=== PATIENT | female | born 1960 | race Two or more races ===

== ENCOUNTER → 2024-12-04 | Outpatient (CLI) | payer MEDICARE, MEDICAID, SELFPAY ==
--- NOTE | 2024-12-04 12:29 | XR_ITS ---
Examination: Abdomen AP single view Technique: AP portable supine abdomen, single view Exam date and time: December 04, 2024 1242 hours INDICATIONS: Hematuria beginning one year ago. FINDINGS: Moderate to large amounts of stool throughout the colon No renal or ureteral calculi depicted No free air IMPRESSION: No renal or ureteral calculi depicted
== END | disposition home or self-care (01) ==
PROVIDERS: Referring Provider Surgery; Visit Provider Surgery
DX: R31.9 Hematuria, unspecified (principal)
CPT/HCPCS: 74018

== ENCOUNTER → 2024-12-18 | Outpatient (CLI) | payer MEDICARE, MEDICAID, SELFPAY ==
--- NOTE | 2024-12-18 16:30 | XR_ITS ---
Examination: Retroperitoneal ultrasound, complete Technique: Multiple high resolution grayscale images of the retroperitoneum obtained, including kidneys and bladder. Exam date and time:December 18, 2024 1650 hours INDICATIONS: Intermittent hematuria episodes 2 years, diagnosis bladder prolapse 5 years FINDINGS: Right kidney 10.3 x 4.8 x 4.8 cm cortex 1.9 cm Left kidney 10.6 x 4.2 x 4.4 cm in the cortex 1.7 cm Mild bilateral renal parenchymal scar formation No hydronephrosis or renal calculi No bladder mass or bladder calculi Bladder prevoid volume 112 cc postvoid volume 58 cc IMPRESSION: Mild bilateral renal parenchymal scar formation No hydronephrosis or renal calculi
== END | disposition home or self-care (01) ==
PROVIDERS: PCP Behavior Technician; Referring Provider Surgery; Visit Provider Surgery
DX: N28.89 Other specified disorders of kidney and ureter (principal)
CPT/HCPCS: 76770

== ENCOUNTER 2025-03-09 10:55 | Outpatient (AMB) | payer MEDICARE, MEDICAID, SELFPAY ==
--- NOTE | 2025-03-09 11:26 | GYNCLNT_ITS ---
Vital Signs 03/09/25 11:27 Height 1.57 m Height Method Stated Weight 72.631 kg Weight Measurement Method Standing Scale BMI 29.2 BP 132/81 H Blood Pressure Source Automatic Cuff Blood Pressure Location Left Upper Arm Position Sitting Respiration 14 Pulse 63 Pulse Source Monitor Temp 97.7 F Temp Source Oral Pulse Oximetry (%) 96 Oxygen Delivery Method Room Air Allergies/Home Meds Allergies & Medications Allergies NKA Allergy (Unknown, Uncoded 03/09/25 11:28) No Known Allergies Allergy (Unknown, Uncoded 03/09/25 11:28) Medication Reconciliation buspirone 7.5 mg tablet 7.5 mg PO BID 12/08/21 [History Confirmed 03/09/25] docusate sodium 100 mg capsule (Colace) 100 mg PO QDAY 12/08/21 [History Confirmed 03/09/25] gabapentin 100 mg capsule 100 mg PO TID 12/08/21 [History Confirmed 03/09/25] hydrochlorothiazide 25 mg tablet 25 mg PO QDAY 12/08/21 [History Confirmed 03/09/25] ibuprofen 800 mg tablet 800 mg PO Q8H PRN 12/08/21 [History Confirmed 03/09/25] losartan 100 mg tablet 100 mg PO QDAY 12/08/21 [History Confirmed 03/09/25] omeprazole 20 mg capsule,delayed release 20 mg PO QDAY 12/08/21 [History Confirmed 03/09/25] Intake Visit Data Collection New Patient or Established: Established Patient (seen at [facility] within 3 years) Reason for Visit:: Urge incontinence, leaks urine if she doesn't immediately run to the bathroom , wears pad at all times, structure coming out from the bottom whenever she goes to the restroom Seen by Clinical Staff ONLY (RN/MA): No Tape Transferrer Required: No Do You Feel Safe at Home: Yes Authorities Contacted: N/A PCP or OBGYN visit in last 3 months: Yes Hx Now: No Are you currently on any form of Control: No Pain Present Currently: No Pain Scale Used: Mancia-Lainez/Numerical Pain scale:: 0 Smoking Status Smoking Status: Never smoker Edge Kitter history Edge Kitter History Menopausal: Yes If menopausal, at what age did it occur: 54 Currently sexually active: No If not currently sexually active, have you ever been sexually active: Yes Questionnaires Covid-19 Vaccine Questionnaire Has patient been vacinated for Covid-19 Have you been vacinated for Covid-19: Yes PHQ-9 PHQ-2 Over the last 2 weeks, how often have you been bothered by any of the following problems? 1. Little interest or pleasure in doing things: not at all 2. Feeling down, depressed, or hopeless: not at all Total score: 0 PHQ-9 3. Trouble falling or staying asleep, or sleeping too much: Not at all 4. Feeling tired or having little energy: Not at all 5. Poor appetite or overeating: Not at all 6. Feeling bad about yourself - or that you are a failure or have let yourself or your family down: Not at all 7. Trouble concentrating on things, such as reading the newspaper or watching television: Not at all 8. Moving or speaking so slowly that other people could have noticed? - Or the opposite - being so fidgety or restless that you have been moving around a lot more than usual: not at all 9. Thoughts that you would be better off or of hurting yourself in some way: Not at all Total score: 0 Source: Developed by Drs. Guilherme Silveira, Paloma Ignacio, Floyd Harrison and colleagues, with an educational emerald from [employer]. Depression screen completed yes Social History Living Situation History Marital Status: Lives With: Family Housing: House Tobacco History Smoking Status: Never smoker Second Hand Smoke Exposure: No Alcohol History Alcohol Intake: Never Domestic Abuse History Do You Feel Safe at Home: Yes Past Medical History Past Medical History Have you ever been diagnosed with any of the following: Neurological Problems Cerebrovascular Accident (CVA): No Transient Ischemic Attacks (TIA): No Dementia: No Alzheimer's Disease: No Seizures: No Guillain-[place] Syndrome: No Cardiology Problems Myocardial Infarction: No Cardiac Arrhythmia: No Hypertension: No Respiratory Problems Chronic Obstructive Pulmonary Disease (COPD): No Asthma: No Bronchitis: No Tuberculosis: No Hx Cough: No Cough: No Wheezing: No Chest Deformities: No Smoking: No Smoking Cessation Counseling: No Tobacco Use: No Stomache/Intestinal Problems Liver Cancer: No Hepatitis: No Genital/Urinary Problems Chronic Kidney Disease: No Renal Disease: No Kidney Stones: No Polycystic Kidney Disease: No Reproductive Problems Breast Cancer: No Endometriosis: No Fibroids: No Musculoskeletal Problems Muscular Dystrophy: No Myasthenia Gravis: No Marfan's Syndrome: No Head,Eye,Nose,Throat Problems Cataracts: No Glaucoma: No Blind: No Endocrine Problems Diabetes Mellitus Type 1: No Diabetes Mellitus Type 2: No [place]'s Syndrome: No Blood Problems Anemia: No Psychologic Problems Schizophrenia: No Recreational Drug Use: No Other Problems Hospitalization: No Autoimmune Disease: No Down Syndrome: No Surgical History Angioplasty: No Appendectomy: No Bariatric Surgery: No History of Present Illness JOHANNY Dunaway is a 64-year-old female with a history of hysterectomy and incontinence procedure approximately 15 years ago, presenting with symptoms of urge incontinence and pelvic organ prolapse. The patient reports leaking urine if she doesn't immediately run to the bathroom and has to wear a pad at all times. She also complains of a structure coming out from the bottom whenever she goes to the restroom. The patient's urge incontinence symptoms have been ongoing, though the exact onset is unclear. She experiences urine leakage if she doesn't immediately respond to the urge to urinate. The severity of her symptoms requires her to wear a pad constantly, indicating a significant impact on her daily functioning. Additionally, the patient has noticed a prolapse, describing it as a structure coming out from her vagina when she uses the restroom. The timing of this symptom appears to be consistent with bathroom use. The patient's history includes a hysterectomy performed by Dr. Solomon about 15 years ago, followed by an incontinence procedure. Despite these previous interventions, her current symptoms suggest a progression or recurrence of her urinary and pelvic floor issues. Medical History - Urge incontinence Surgical History - Hysterectomy performed by Dr. Solomon approximately 15 years ago - Incontinence procedure performed by Dr. Solomon, subsequent to hysterectomy Review of Systems Genitourinary: Positive for urge incontinence, urinary leakage, and pelvic organ prolapse. Review of Systems Review of Systems Systems Reviewed: All systems reviewed, normal except as documented Exam General Limitations: no limitations General Appearance: alert, in no apparent distress, comfortable, cooperative, healthy appearing, well developed and well groomed Head Head exam: atraumatic, normocephalic and normal inspection Chest Chest inspection: Present normal inspection and symmetric chest wall rise Abdominal Abdominal exam: Present soft and normal bowel sounds External exam: Present normal external exam Bimanual exam: Present other (Digital examination reveals bladder prolapse. Vaginal examination shows collapse of the top of the vagina.) Psych Psychiatric exam: Present normal affect and normal mood Skin Skin exam: Present warm, dry, intact and normal color Assessment & Plan Diagnosis / Problem List (1) Prolapse of vaginal vault after hysterectomy: Status: Acute (2) Mixed incontinence: Status: Acute Plan Emelyn is a 64-year-old female with a history of hysterectomy and incontinence procedure presenting with urge incontinence and pelvic organ prolapse. Pelvic Organ Prolapse (Cystocele) Assessment: Patient reports symptoms of a structure protruding from the vagina during urination. On examination, a cystocele was identified. This condition likely developed following the patient's hysterectomy approximately 15 years ago, as the top of the vagina is collapsing downward. The prolapse is s ignificant enough to warrant intervention. Plan: - Insert pessary for temporary relief - Silicone cube to be removed and cleaned monthly - Will order pessary and contact patient when available (estimated 1-2 weeks) - Refer to specialist at [facility] for surgical intervention - Procedure involves small incisions to lift and secure the top of the vagina to internal abdominal structures - Informed patient of 3-6 month wait time for specialist appointment - Advised 7 days of bed rest post-surgery - Provide patient with printed information about the surgical procedure Urge Incontinence Assessment: Patient reports symptoms consistent with urge incontinence, including urine leakage when unable to immediately reach the bathroom. She requires constant pad use. This condition may be related to the previous incontinence procedure and current pelvic organ prolapse. Plan: - Anticipate improvement with pessary insertion and eventual surgical correction of prolapse - Reassess symptoms after prolapse treatment Advanced Care Planning Advance care planning discussed with:: patient Office Procedures OB Clinic LOC & Office Proc's Nursing/Assessment Patient Status: Established Patient OB Clinic Nursing Assessment: Medication Reconciliation, Update PMH in EMR and Vital Signs OB Clinic Coordination of Care: Complex Care and Chronic Disease 1-5, Consent,records obtained, informed consent, Education Simp Pt/Fam, Lab and Imaging orders, Results/Orders obtained and Staff clarify orders Established Patient Charge Established Patient Point Assignment: 105 Established Patient Point Charge: EP Level 3 (80-115)
[2025-03-09 11:27] VITALS: BP 132/81; PULSE 63; RESP 14; TEMP 36.5; O2SAT 96; BMI 29.2
== END 2025-03-09 11:44 | disposition home or self-care (01) ==
LOC: HODSOBC 10:55
PROVIDERS: PCP Behavior Technician; Referring Provider Behavior Technician; Supervising Provider Obstetrics & Gynecology; Visit Provider Obstetrics & Gynecology
DX: N99.3 Prolapse of vaginal vault after hysterectomy (principal); N39.46 Mixed incontinence; Z90.710 Acquired absence of both cervix and uterus; Y83.6 Removal of other organ (partial) (total) as the cause of abnormal reaction of the patient, or of later complication, without mention of misadventure at the time of the procedure
CPT/HCPCS: 99213; G0463

== ENCOUNTER 2025-08-13 13:58 | Emergency (ER) | payer MEDICARE, MEDICAID, SELFPAY ==
[2025-08-13 14:28] VITALS: BP 167/90; PULSE 65; RESP 18; TEMP 37; O2SAT 96
[2025-08-13] MEDS: LIDOCAINE HCL 1% 20 ML VIAL INFL (15:00)
[2025-08-13] MEDS: DIPHTH,PERTUSS(ACELL),TET VAC 0.5 ML SYR- ADULT IMi (15:00)
--- NOTE | 2025-08-13 16:30 | PD.EDSKIN ---
ED Skin Abcess FB-RME/HPI General Chief complaint: Skin/Abscess/Foreign Body Stated complaint: REDNESS AND ITCHING TO RIGHT CHEECK Time Seen by Provider: 08/13/25 14:14 Arrival date/time: 08/13/25 13:58 64-year-old female presents to the Emergency Department today for complaint of 1 week history of redness to her right cheek patient reports that she saw her PCP and they started her on Keflex 2 days ago Limitations: no limitations Related Data Home Medications ?Medication ?Instructions ?Recorded ?Confirmed buspirone 7.5 mg tablet 7.5 mg PO BID 12/08/21 03/09/25 docusate sodium 100 mg capsule 100 mg PO QDAY 12/08/21 03/09/25 (Colace) gabapentin 100 mg capsule 100 mg PO TID 12/08/21 03/09/25 hydrochlorothiazide 25 mg tablet 25 mg PO QDAY 12/08/21 03/09/25 ibuprofen 800 mg tablet 800 mg PO Q8H PRN 12/08/21 03/09/25 losartan 100 mg tablet 100 mg PO QDAY 12/08/21 03/09/25 omeprazole 20 mg capsule,delayed 20 mg PO QDAY 12/08/21 03/09/25 release Previous Rx's ?Medication ?Instructions ?Recorded sulfamethoxazole 800 1 tab PO BID 7 days #14 tabs 08/13/25 mg-trimethoprim 160 mg tablet (Bactrim DS) Allergies Allergy/AdvReac Type Severity Reaction Status Date / Time No Known Allergies Allergy Verified 08/13/25 14:00 Review of Systems Review of Systems Systems Reviewed: All systems reviewed, normal except as documented Constitutional Constitutional: Reports system reviewed and no additional complaints, except as documented, Denies fever(s) and Denies headache(s) Eyes Eyes: Reports system reviewed and no additional complaints, except as documented and Denies blurry vision ENT Ears, Nose, Mouth, and Throat: Reports system reviewed and no additional complaints, except as documented, Denies headache(s), Denies nasal congestion and Denies nasal discharge Cardiovascular Cardiovascular: Reports system reviewed and no additional complaints, except as documented, Denies chest pain and Denies dyspnea Respiratory Respiratory: Reports system reviewed and no additional complaints, except as documented, Denies chest congestion, Denies cough and Denies dyspnea Gastrointestinal Gastrointestinal: Reports system reviewed and no additional complaints, except as documented and Denies abdominal pain Integumentary/Breasts Skin/Breast: Reports system reviewed and no additional complaints, except as documented, Denies rash and Reports other (Abscess versus cellulitis versus cyst right cheek) Neurologic Neurologic: Reports system reviewed and no additional complaints, except as documented, Reports as per HPI and Denies headache(s) Past Medical History Past Medical History NEUROLOGIC: Negative Cerebrovascular Accident, Transient Ischemic Attacks (TIA), Dementia, Alzheimer's Disease, Seizures or Guillain-[place] Syndrome CARDIAC: Negative Myocardial Infarction, Cardiac Arrhythmia or Hypertension RESPIRATORY: Negative Chronic Obstructive Pulmonary Disease (COPD), Asthma, Bronchitis, Tuberculosis, Cough, Sputum Production, Wheezing, Chest Deformities, Smoking, Smoking Cessation Counseling or Tobacco Use GASTROINTESTINAL: Negative Liver Cancer or Hepatitis GENITOURINARY: Negative Renal Disease, Kidney Stones or Polycystic Kidney Disease REPRODUCTIVE: Negative Breast Cancer, Endometriosis or Fibroids MUSCULOSKELETAL: Negative Muscular Dystrophy, Myasthenia Gravis or Marfan's Syndrome ENT: Negative Cataracts, Glaucoma or Blind ENDOCRINE: Negative Diabetes Mellitus Type 1, Diabetes Mellitus Type 2 or [place]'s Syndrome HEMATOLOGIC: Negative Anemia PSYCHO/SOCIAL: Negative Schizophrenia or Recreational Drug Use OTHER HISTORY: Negative Hospitalization, Autoimmune Disease, Down Syndrome or Breast Cancer Social History SMOKING STATUS: Never smoker SECOND HAND EXPOSURE: No ED Exam General Limitations: Present no limitations General appearance: Present alert and in no apparent distress Head Head exam: Present atraumatic Eye Eye exam: Present normal appearance, PERRL and EOMI ENT ENT exam: Present normal exam, normal oropharynx and mucous membranes moist Neck Neck exam: Present normal inspection, full ROM and trachea midline Chest Chest inspection: Present normal inspection and symmetric chest wall rise Respiratory Respiratory exam: Present normal lung sounds bilaterally Cardiovascular Cardiovascular exam: Present regular rate, normal rhythm and normal heart sounds Abdominal Exam Abdominal exam: Present soft and normal bowel sounds Extremities Exam Extremities exam: Present normal inspection and full ROM Back Exam Back exam: Present normal inspection and full ROM Neurological Exam Neurological exam: Present alert, oriented X3 and CN II-XII intact Psychiatric Psychiatric exam: Present normal affect and normal mood Skin Skin exam: Present warm, dry and other (Cyst right cheek) Course Quality Measures none Orders Category Date Time Status Set Up Suture Tray STAT Care 08/13/25 14:26 Completed Wound Care NOW Care 08/13/25 14:26 Completed Wound Culture and Gram Stain Stat Lab 08/13/25 15:43 Completed Lidocaine 1% 20 ml [Xylocaine 1% 20 ML] Med 08/13/25 15:42 Discontinued 2.1 ml INFL X1 ONE Lidocaine 1% 20 ml [Xylocaine 1% 20 ML] Med 08/13/25 14:26 Discontinued 20 ml INFL X1 ONE TET,DIP/PERT AC (Adult)-Tdap [Boostrix Adult (Tdap) Med 08/13/25 14:26 Discontinued Vacc] 0.5 ml IMI .ONCE ONE cefTRIAXone [Rocephin] Med 08/13/25 15:42 Discontinued 1,000 mg IM X1 ONE cefTRIAXone [Rocephin] 1,000 mg Med 08/13/25 15:43 Discontinued Lidocaine 1% 20 ml [Xylocaine 1% 20 ML] 2.1 ml IM X1 Vital Signs Vital signs: Vital Signs Temperature 98.6 F 08/13/25 14:28 Pulse Rate 65 08/13/25 14:28 Respiratory Rate 18 08/13/25 14:28 Blood Pressure 167/90 H 08/13/25 14:28 Pulse Oximetry (%) 96 08/13/25 14:28 Oxygen Delivery Method Room Air 08/13/25 14:28 O2 saturation 96% room air within normal limits PROCEDURES: Abscess I/D Site: face Side (if applicable): right Local Anesthetic: lidocaine 1% Amount of anesthesia used (mL): 5 Technique: incised with #11 blade Amount of fluid expressed (mL): 10 Irrigation: Yes Packing used?: none Complications: pain Skin / Abscess / Foreign Body MDM Narrative MDM Narrative:: 64-year-old female presents to the Emergency Department today for complaint of 1 week history of redness to her right cheek patient reports that she saw her PCP and they started her on Keflex 2 days ago On exam patient has what appears to be an abscess versus infected cyst to the right cheek I&D performed with patient's consent Patient appears to have an infected sebaceous cyst cyst material removed as well as pus surrounding the area Patient given Rocephin discharged home with Bactrim Patient discharged home in no distress to follow-up with primary care doctor in the next 24 to 48 hours and for any worsening symptoms to return to the ER immediately Patient data External records reviewed:: [facility] previous records Clinical information provided by:: patient Social determinants that could affect healthcare access:: none Patient has the following chronic illnesses:: See history How is presenting disease/condition affected by chronic disease/condition?: uneffected by Evaluation data The following diagnostics were reviewed and interpreted by me:: other (specify) Lab and/or radiology exams considered but not ordered:: Considered not indicated Interpretation Summary: N/A Medications / Prescriptions Medications or Prescriptions considered but not ordered:: Given Medication administrations:: Medication Administration History Discontinued Medications Ceftriaxone Sodium (Ceftriaxone Sod Inj 1,000 Mg Vial) 1,000 mg IM X1 ONE Stop: 08/13/25 15:43 Last Admin: 08/13/25 16:37 Dose: Not Given Documented By: Non-Admin Reason: Cancelled by Provider Ceftriaxone Sodium 1,000 mg/ (Lidocaine HCl 2.1 ml) 0 mg IM X1 ONE Stop: 08/13/25 15:44 Last Admin: 08/13/25 16:35 Dose: 1,000 mg Documented By: Comments: Diphtheria/Tetanus/Acell Pertussis (Diphth,Pertuss(Acell),Tet Vac 0.5 Ml Syr- Adult) 0.5 ml IMi .ONCE ONE Stop: 08/13/25 14:27 Last Admin: 08/13/25 15:00 Dose: 0.5 ml Documented By: Lidocaine HCl (Lidocaine Hcl 1% 20 Ml Vial) 20 ml INFL X1 ONE Stop: 08/13/25 14:27 Last Admin: 08/13/25 15:00 Dose: 20 ml Documented By: Lidocaine HCl (Lidocaine Hcl 1% 20 Ml Vial) 2.1 ml INFL X1 ONE Stop: 08/13/25 15:43 Last Admin: 08/13/25 16:37 Dose: Not Given Documented By: Non-Admin Reason: Cancelled by Provider Given Consultations Consultation(s) initiated? (list below): No Diagnosis Skin/Abscess Differential Diagnosis: abscess of skin or subcutaneous tissue and other (Infected cyst) Most likely diagnosis given after review of the tests above:: Infected sebaceous cyst Admission Indicated Admission indicated?: not indicated Admission Request Was there a request for admission?: No Disposition Plan Disposition Plan: Discharge Discharge Attestation Discharge Attestation: The patient and all family members were given an opportunity to ask questions and understood the discharge instructions. Discharge instructions specifically effects, indications for sooner follow up or return to the emergency department, and the expected course of current diagnosis. Patient condition: Stable Discharge Plan Plan Patient Disposition: HOME (Self Care) Discharge Disposition comment: Stable Prescriptions/Referrals Prescriptions/Med Rec: New sulfamethoxazole-trimethoprim [Bactrim DS] 800-160 mg tablet 1 tab PO BID 7 Days Qty: 14 0RF No Action buspirone 7.5 mg tablet 7.5 mg PO BID docusate sodium [Colace] 100 mg capsule 100 mg PO QDAY gabapentin 100 mg capsule 100 mg PO TID hydrochlorothiazide 25 mg tablet 25 mg PO QDAY ibuprofen 800 mg tablet 800 mg PO Q8H PRN losartan 100 mg tablet 100 mg PO QDAY omeprazole 20 mg capsule,delayed release(DR/EC) 20 mg PO QDAY Problem List Clinical Impression: Infected sebaceous cyst Patient/Caregiver Discharge Instructions Additional Instructions: Please follow up with your primary care doctor in the next 24-48hrs for any worsening symptoms return here immediately Print Language: Georgian Stand Alone Forms: Mimi Award Info., Patient Portal Info Letter PA/TEST DRIVER Supervising Physician PA/TEST DRIVER Supervising Physician: Dr. Bang
[2025-08-13] MEDS: cefTRIAXone 1,000 MG, LIDOCAINE 1% 20 ML 2.1 ML IM (16:35)
== END 2025-08-13 17:23 | disposition home or self-care (01) ==
LOC: SERX 17:13
PROVIDERS: Emergency Provider Emergency Medicine
DX: L72.3 Sebaceous cyst (principal); Z23 Encounter for immunization
CPT/HCPCS: 10060; 87070; 87205; 90471; 90715; 96372; 99284; J0696; J3490